=== PATIENT | female | born 1955 | race Caucasian/White ===

== ENCOUNTER → 2016-11-11 | Outpatient (CLI) | payer OTHER ==
[~2016-11-11] MED LIST: DICL100G7 TP; FLUT1DIS IH; GABA-586 PO; LISI-334 PO; LOVA20TA2 PO; METO100T11 PO; PROAIR HFA8.5 GM IH; RANI75TA95 PO
--- NOTE | 2016-11-11 12:53 | CARD ---
APPROVED REPORT EXAM: Two-dimensional and M-mode echocardiogram with Doppler and color Doppler. Other Information Quality : Average Rhythm : NSR INDICATION Arrhythmia SVT 2D DIMENSIONS RVDd2.7 (2.9-3.5cm)Left Atrium(2D)2.7 (1.6-4.0cm) IVSd1.0 (0.7-1.1cm)Aortic Root(2D)3.1 (2.0-3.7cm) LVDd4.1 (3.9-5.9cm)LVOT Diameter2.0 (1.8-2.4cm) PWd1.0 (0.7-1.1cm)LVDs3.2 (2.5-4.0cm) FS (%) 32.6 %SV33.8 ml LVEF(%)55.9 (>50%) Aortic Valve AoV Peak Bhavin.122.2cm/sAoV VTI26.6cm AO Peak GR.6.0mmHgLVOT Peak Bhavin.108.9cm/s LVOT VTI 23.56cmAO Mean GR.3mmHg SHEBA (VMAX)2.91kj1VJE (VTI)2.81cm2 Mitral Valve MV E Jwjqzadd56.8cm/sMV DECEL NLOP884mu MV A Qetejufy43.0cm/sMV E Mean Gr.1mmHg MV JRP032baC/A Ratio0.6 MV A Irikijay853juTMD (PHT)1.98cm2 TDI E/Lateral E'6.4E/Medial E'7.2 Pulmonary Valve PV Peak Tphuoxsx39.4cm/sPV Peak Grad.2mmHg RVOT VTI11.6cm Tricuspid Valve TR P. Tprutsff915eh/sRAP KIUBNXDQ4arJj TR Peak Gr.49xgNwYBXV42rhJz Pulmonary Vein S1 Qcaqycku33.6cm/sD2 Axuzcnod82.4cm/s LEFT VENTRICLE The left ventricle is normal size. There is normal left ventricular wall thickness. Left ventricle sy stolic function is normal. The Ejection Fraction is 55-60% There is normal LV segmental wall motion. Tissue Doppler imaging reveals mild left ventricular diastolic dysfunction. Transmitral Doppler flow pattern is Grade I-abnormal relaxation pattern. RIGHT VENTRICLE The right ventricle is normal size. The right ventricular systolic function is normal. ATRIA The left atrium size is normal. The right atrium size is normal. The interatrial septum is intact wit h no evidence for an atrial septal defect or patent foramen ovale as noted on 2-D or Doppler imaging. AORTIC VALVE The aortic valve is normal in structure and function. The aortic valve is trileaflet. Doppler and Col or Flow revealed no significant aortic regurgitation. There is no significant aortic valvular stenosi s. MITRAL VALVE The mitral valve is normal in structure and function. There is no mitral valve stenosis. Doppler and Color Flow revealed no mitral valve regurgitation noted. TRICUSPID VALVE The tricuspid valve is normal in structure. Doppler and Color Flow revealed mild tricuspid regurgitat ion. The PA pressure was estimated at 42 mmHg. There is no tricuspid valve stenosis. PULMONIC VALVE The pulmonic valve is not well visualized. Doppler and Color Flow revealed trace pulmonic valvular re gurgitation. There is no pulmonic valvular stenosis. GREAT VESSELS The aortic root is normal in size. Normal pulmonary venous flow (Doppler). The IVC is normal in size and collapses >50% with inspiration. PERICARDIAL EFFUSION There is no evidence of significant pericardial effusion. Critical Notification Critical Value: No <Conclusion> The left ventricle is normal size. Left ventricle systolic function is normal. The Ejection Fraction is 55-60% There is no significant aortic valvular stenosis. Doppler and Color Flow revealed no significant aortic regurgitation. Doppler and Color Flow revealed no mitral valve regurgitation noted. Doppler and Color Flow revealed mild tricuspid regurgitation. The PA pressure was estimated at 42 mmHg.
== END | disposition home or self-care (01) ==
LOC: ECHO 10:31
PROVIDERS: ATTEND Internal Medicine Cardiovascular Disease
DX: I47.1 Supraventricular tachycardia (principal); I07.1 Rheumatic tricuspid insufficiency; I37.1 Nonrheumatic pulmonary valve insufficiency
CPT/HCPCS: 93306

== ENCOUNTER → 2017-05-26 | Outpatient (CLI) | payer OTHER ==
[~2017-05-26] MED LIST changes: +DICL100G18 TP; -DICL100G7 TP
--- NOTE | 2017-05-27 07:20 | RAD ---
APPROVED REPORT Patient Location : OUT-PATIENT Indications Lower Extremity Pain : Bilateral Varicose Veins Skin Changes Risk Factors Family History of Varicose Veins Past History PT HAS SUPRAVENTRICULAR TACHICARDIA Deep System Deep Venous Thrombosis present : No Greater Saphenous Veins (GSV) Significant venous relux noted in the RIGHT GSV at the following levels : Superficial Femoral Junctio n Significant venous relux noted in the LEFT GSV at the following levels : Superficial Femoral Junction Lesser Saphenous Veins (LSV) Significant venous reflux is noted in the Bilateral LSV. Findings The right great saphenous vein measures approximately 6 mm and has a reflux time of 1.5 seconds. The right lesser saphenous vein measures approximately 7 mm and has a reflux time of 2 seconds. Multiple perforators are noted on the right calf at approximately 25 cm up, 9 cm back: 27 cm up and 10 cm back : 39 cm up and 13 cm back: The left great saphenous vein measures approximate 6.6 mm and has a reflux time of 1.2 seconds. The l eft lesser saphenous vein measures approximately 7 mm proximally but is not well visualized distally. Spectral waveforms are not accurate enough to demonstrate any amount of significant reflux in this v essel. Multiple perforators are noted again on the left side at approximately 19 cm up and 8 cm back: 23 cm up and 10 cm back. A thigh circus artist at approximately 47 cm up and 15 cm back is also noted. Critical Notification Critical Value: No <Conclusion> 1. Positive for reflux in the bilateral greater and right lesser saphenous veins with multiple perfor ators in the bilateral lower extremities as noted above.
== END | disposition home or self-care (01) ==
LOC: US 09:07
PROVIDERS: ATTEND Internal Medicine Cardiovascular Disease
DX: M79.604 Pain in right leg (principal); M79.605 Pain in left leg; I83.93 Asymptomatic varicose veins of bilateral lower extremities; R23.8 Other skin changes
CPT/HCPCS: 93970

== ENCOUNTER → 2020-04-22 | Outpatient (CLI) | payer MEDICARE, MEDICAID ==
[2019-09-08 10:37] VITALS: BP 150/89
[~2020-04-22] MED LIST changes: +ALBU2.5V8 IH; +BENZ200C47 PO; -DICL100G18 TP; +DICL100G54 TP; +FLUT16SP NS; +FLUT1DIS3 IH; -GABA-586 PO; +GABA-689 PO; +GABA300C18 PO; +IPRA15SP NS; +LEVO500T59 PO; +LOSA-73 PO; +METO-247 PO; -METO100T11 PO; +METR500T PO; -PROAIR HFA8.5 GM IH; +RANI-369 PO; -RANI75TA95 PO; +TIOT18CA IH; +ZOLPIDEM 5 MG TABLET. PO ONE; +oxygen
--- NOTE | 2020-04-23 09:13 | SLEEP ---
DATE OF STUDY: 04/22/2020 ATTENDING PHYSICIAN: Dr. Jody Gillis. REFERRING PHYSICIAN: Dr. Bentley. The patient is a 65-year-old who weighs 172 pounds with a BMI of 32. The patient underwent split night study performed at [facility]. During the night study, the patient spent 432 minutes in bed and slept for 275 minutes with a sleep efficiency of 64%. Sleep latency was 69 minutes with a REM latency of 189 minutes. Sleep architecture showed normal stage 1 and stage 2 sleep, increased slow wave and reduced REM sleep. During the initial diagnostic portion of the study, the patient slept for 72 minutes. During that time, there were 30 obstructive apneas, 72 mixed apneas, no central apneas and 8 hypopneas. The patient's AHI was 92 per hour with a supine AHI of 92 per hour. REM sleep was not seen during the diagnostic portion. Nocturnal oximetry study revealed a mean oxygen saturation 94% with the lowest of 81%. 11.5% of time oxygen saturation remained between 80% and 89%. EKG monitoring revealed normal sinus rhythm. Average heart rate of 79 beats per minute, no sustained arrhythmias observed. PLMS were seen at index of 5 per hour and 2 per hour caused EEG arousals. The patient met the criteria for CPAP initiation. It was started at 7 cm water and titrated up to 18 cm water. The patient was also switched to BiPAP at 20/15; however, the patient did not tolerate the BiPAP well. Therapeutic pressure is achieved on CPAP at 18 cm water. The patient slept for 75 minutes. The patient's AHI was reduced to 2 per hour. The patient had supine as well as REM sleep. Oxygen saturation remained above 91%. The patient used a small size full face mask. IMPRESSION: 1. Severe obstructive sleep apnea at an AHI of 92 per hour. 2. Nocturnal hypoxia secondary to obstructive sleep apnea, but resolved with CPAP. 3. No clinically significant periodic limb movements. RECOMMENDATIONS: 1. CPAP at 18 cm water completely eliminated the patient's sleep apnea, it should be used on a nightly basis. 2. Follow up in 4-6 weeks to assess compliance with CPAP and to document clinical improvement. 3. Weight loss is strongly advised. 4. Avoid INSTALLATION COORDINATOR depressants. 5. Cautioned regarding driving until symptoms of sleep apnea resolve with the use of CPAP. YJOTI JEFFERY MD DR: Anderson JOB#: [id number] / [id number] JOON Jennings MD
== END ==
LOC: RT 18:19
PROVIDERS: ATTEND Internal Medicine Pulmonary Disease
DX: G47.33 Obstructive sleep apnea (adult) (pediatric) (principal)
CPT/HCPCS: 95810

== ENCOUNTER → 2020-07-30 | Outpatient (CLI) | payer OTHER ==
[2019-09-08 10:37] VITALS: BP 150/89
[~2020-07-30] MED LIST changes: -ZOLPIDEM 5 MG TABLET. PO ONE
--- NOTE | 2020-07-30 09:14 | KCIC ---
Bone Densitometry History: ASYMPTOMATIC MENOPAUSAL Findings: Bone Densitometry was performed with dual photon absorption of the lumbar spine and proximal femurs. Lumbar Spine: Bone density is 0.925 g/cm2 for L1-L4. T-score is -1.1. Z-score is 0.7. Left femoral neck: Bone density is 0.889 g/cm2. T-score is -0.4. Z-score is 0.8. IMPRESSION: Bone mineral density loss of the lumbar spine of 12 percent compared to peak young reference. Follow-up bone densitometry exam in 24-36 months is recommended if additional or more aggressive therapy is instituted. World Health Organization definition of osteoporosis and osteopenia for women: normal equals T score at or above -1.0 standard deviations; osteopenia equals T score between -1.0 and -2.5 standard deviations; osteoporosis equals T score at or below -2.5 standard deviations. Electronically signed by: Juan C Boyd MD (07/30/2020 9:12 AM) [id number]
--- NOTE | 2020-07-30 15:20 | KCIC ---
Bilateral digital screening mammograms: Reason for examination: Routine screening. Comparison is made to previous studies dated back to 09/14/2014. Interpretation was made with the benefit of CAD. The skin and nipples show no abnormalities. No abnormal axillary lymph nodes are seen. The breast parenchyma shows scattered fibroglandular density. (Breast density: Category B.) There continue to be small benign-appearing nodules bilaterally. The appearance of the lesions in the upper outer quadrants are consistent with intramammary lymph nodes. There are no new dominant masses, suspicious calcifications or architectural distortions. Impression: No evidence of malignancy. Recommend routine screening. BI-RADS Category 2: Benign. "Our facility is accredited by the [employer] Mammography Program." This patient's information has been entered into a reminder system for the patient to be notified with the results of her examination and a target date for the next mammogram. Electronically signed by: Marah Jiang MD (07/30/2020 3:17 PM) [id number]
== END ==
LOC: KCIC MAMMO 08:11
PROVIDERS: ATTEND Family Medicine
DX: Z12.31 Encounter for screening mammogram for malignant neoplasm of breast (principal); Z68.29 Body mass index [BMI] 29.0-29.9, adult; Z78.0 Asymptomatic menopausal state
CPT/HCPCS: 77067; 77080